=== PATIENT | male | born 1955 | race Caucasian/White ===

== ENCOUNTER 2017-07-30 09:52 | Emergency (ER) | payer OTHER ==
[~2017-07-30] VITALS: Ht 185.4 cm; Wt 104.3 kg
[~2017-07-30 09:52] MED LIST: ASPI-757 PO; [UNRECOGNIZED DRUG - OTHER]; [UNRECOGNIZED DRUG - OTHER]; cholesterol; thyroid
[2017-07-30] MEDS ORDERED: ASPI-1471 PO (10:19)
[2017-07-30] MEDS ORDERED: CAPSAICIN 0.1% TOP (10:19)
[2017-07-30] MEDS ORDERED: CHOL10005 PO (10:19)
[2017-07-30] MEDS ORDERED: ATOR-1 PO (10:19)
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
[2017-07-30] MEDS ORDERED: DIAZEPAM 10 MG/2 ML SYR IVP ONE (10:25)
[2017-07-30] MEDS ORDERED: MELO-207 PO (10:34)
[2017-07-30] MEDS ORDERED: OXYM15SP61 NS (10:34)
[2017-07-30] MEDS ORDERED: THIA100T62 PO (10:34)
[2017-07-30] MEDS ORDERED: SODI15VI IH (10:34)
[2017-07-30] MEDS ORDERED: OMEG-23 PO (10:34)
[2017-07-30] MEDS ORDERED: HYDR10TA3 PO (10:34)
[2017-07-30] MEDS ORDERED: VENL75TA98 PO (10:34)
[2017-07-30] MEDS ORDERED: MULT-1335 PO (10:34)
[2017-07-30] MEDS ORDERED: FLUT16SP19 NS (10:34)
[2017-07-30] MEDS ORDERED: LEVO50TA86 PO (10:34)
[2017-07-30] MEDS ORDERED: ORPHENADRINE 60MG/2ML INJ IVP ONE (10:45)
[2017-07-30] MEDS ORDERED: DIAZEPAM 5 MG TAB PO ONE (10:45)
--- NOTE | 2017-07-30 11:39 | RADIOLOGY IMAGING REPORT ---
FACILITY: [facility] PATIENT NAME: Javad Adams : 1955 MR: [id number] V: [id number] EXAM DATE: ORDERING PHYSICIAN: GARY FREED TECHNOLOGIST: Location: [facility] [place] Patient: Javad Adams : 1955 Visit/Account:[id number] Date of Sevice: 07/30/2017 Exam type: SACRUM COCCYX History: back pain, numbness down legs Comparison: None. Findings: There is a sharp anterior angulation in the mid coccyx. This could be related to recent trauma versu s a developmental variant. The SI joints appear symmetric bilaterally. No definite sacral fracture seen IMPRESSION: 1. There is sharp anterior angulation of the mid coccyx which could be related to recent trauma. Cl inical correlation needed Report Dictated By: Soumya Pino MD at 07/30/2017 11:30 AM Report E-Signed By: Soumya Pino MD at 07/30/2017 11:31 AM WSN:[email or web address]
--- NOTE | 2017-07-30 11:40 | RADIOLOGY IMAGING REPORT ---
FACILITY: [facility] [place] PATIENT NAME: Javad Adams : 1955 MR: [id number] V: [id number] EXAM DATE: ORDERING PHYSICIAN: GARY FREED TECHNOLOGIST: Location: [facility] Patient: Javad Adams : 1955 Visit/Account:[id number] Date of Sevice: 07/30/2017 Exam type: LUMBAR SPINE 4 VIEWS History: back pain, numbness down legs Comparison: None. Findings: There are five nonrib-bearing lumbar-type vertebral bodies present. This mild disc space narrowing t hroughout the entire lumbar spine. Anterior osteophytes are noted at L1-2 and L2-3 to lesser extent L3-4 and L4-5. No subluxations are seen. There are moderate degenerative facet joint changes bilate rally at L5-S1 There is mild loss of height of the T12 vertebral body which could be projectional in nature.. There is mild kyphosis at T11-12 IMPRESSION: 1. Mild to moderate spondylotic change lumbar spine with no evidence of acute fractures or subluxati ons. Mild loss of height of the T12 vertebral body which could be projectional in nature. There is a mild anterior kyphosis at T11-12 Report Dictated By: Soumya Pino MD at 07/30/2017 11:31 AM Report E-Signed By: Soumya Pino MD at 07/30/2017 11:33 AM WSN:[email or web address]
[2017-07-30 12:00] VITALS: BP 128/86
[2017-07-30] MEDS ORDERED: DIA5 PO (12:11)
== END 2017-07-30 12:20 | disposition home or self-care (01) ==
LOC: ER 09:53
DX: S39.012A Strain of muscle, fascia and tendon of lower back, initial encounter (principal)
CPT/HCPCS: 72120; 72220; 96374; 99284; J2360